=== PATIENT | male | born 1940 | race Caucasian/White ===

== ENCOUNTER 2017-05-16 11:01 | Emergency (ER) | payer MEDICARE ==
[~2017-05-16] VITALS: Ht 177.8 cm; Wt 86.2 kg
[~2017-05-16 11:01] MED LIST: ASPIRIN 81MG TA81 MG PO; COMBIVENT1 ARO IH; GABAPENTIN300 M1 PO; HYDROCHLOROTHIA25 M1 PO; LIPITOR20 MG PO; LISINOPRIL 20MG20 MG PO; METOPROLOL25 MG PO; NAPROSYN500 M1 PO; TAMIFLU 75MG CA75 MG PO; XARELTO20 MG PO; ZOLPIDEM 10MG T10 MG PO
--- NOTE | 2017-05-16 11:18 | Emergency Room Report ---
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 N Clinical Suspician of Infection? N Mental Status: 1 - Regular (Normal Baseline) Sepsis Risk:Low Sepsis Risk Have you (or family members/close friends) recently traveled outside the [place]? N If Yes, where/when: Have you had exposure to infectious disease within the past month? TB? Other? Specify: Source patient, RN notes reviewed, family, RN/MD Exam Limitations no limitations Comment This is a 76-year-old male patient presenting to the emergency room with dizziness since yesterday, after accidentally taking an additional/extra dose of Delsym. She has been congested and coughing for 3-4 days, not seen his physician yet, gradually getting worse. Orthostatic blood pressure checked in the emergency room upon arrival are nondiagnostic. Denies any chest pain or exertional symptoms. ALLERGIES Coded Allergies: No Known Allergies (05/16/17) Home Medications Reported Medications Gabapentin 300 MG PO TID Zolpidem Tartrate (Zolpidem 10MG) 10 MG PO QHS #30 TAB Metoprolol Tartrate (Metoprolol) 50 MG PO BID LISINOPRIL (Lisinopril) 20 MG PO DAILY Atorvastatin Calcium (Lipitor 20MG) 20 MG PO QHS Rivaroxaban (Xarelto) 20 MG PO DAILY #30 HYDROCHLOROTHIAZIDE (Hydrochlorothiazide) 25 MG PO DAILY #30 History Medical History General CAD? Yes Angina: No MA: No Hypertension? Yes Hyperlipidemia? Yes CHF? No DVT? No PE? No COPD? No Asthma? No Anemia? No GERD? No Gastric ulcers? No GI Bleed? No Hernia? No Thyroid Problems? No Hypothyroidism? No CVA? No Seizures? No Diabetes? No Renal Insuffiency? No End Stage Renal Disease? No UTI? No Stones? No BPH? No GB Disease: No Nephritic Syndrome? No Asplenia? No Hepatitis? No Sickle Cell Disease? No Arthritis? No Migraines? No Cataracts? No Glaucoma? No MRSA? No HIV? No TB? No Anxiety? No Depression? No Cancer? No More? Yes Additional hx: A FIB Immunization Hx Ped.Immunizations UTD Yes DT/Tetanus 1-4 Years Ago Pneumonia Refuses Surgical Hx Previous Surgery?Y Coronary Artery Bypass Family History Family Hx Diabetes No CAD No Hypertension Yes Hyperlipidemia Yes Cancer Yes TB No Social History Smoking Hx Smoker: Never Smoker Tobacco: No Type N/A Packs/day N/A Are you/the child exposed to second-hand smoke: No Alcohol Alcohol: No Review of Systems All Other Systems Reviewed and Negative Psychiatric/Neurological other (dizziness) Physical Exam Vital Signs Vital Signs Date Time Temp Pulse Resp B/P Pulse O2 O2 Flow FiO2 Ox Delivery Rate 05/16 1335 97.8 72 20 108/72 94 05/16 1224 76 20 110/78 94 05/16 1142 87 118/72 05/16 1142 83 119/80 05/16 1142 81 112/83 05/16 1103 97.8 89 16 125/81 94 General Appearance normal appearance, WD/WN, no apparent distress Respiratory Status Yes: trachea midline, chest symmetrical, non tender chest. No: respiratory distress. Lung Sounds bilateral: wheezing. left: wheezing. right: wheezing. Cardiovascular no peripheral edema, irregularly irregular Peripheral Pulses Pulses normal Yes Gastrointestinal normal bowel sounds, normal exam, non tender, soft, no organomegaly Extremities non-tender, normal range of motion, normal inspection Neurologic alert, managed care nurse II-XII nml as tested, normal exam, oriented x 3 Mental status normal mood/affect Skin intact, normal color, warm/dry Medical Decision Making LABS/Meds/Orders Pt receiving controlled substance in ED? No Comment 1245-upon reevaluation the patient appears medically stable, clinically improving. Advised patient to avoid Delsym, and switch to Coricidin. Also start him on oral antibiotics today. If no better to follow-up with PCP per discharge instructions. Results/Orders Laboratory Tests 05/16/17 1120: Sodium 143, Potassium 4.3, Chloride 105, Carbon Dioxide 28, BUN 24 H, Creatinine 1.1, Estimated Creat Clear 67, Estimated GFR (MDRD) 65, Glucose 140 H, Calcium 8.8, Total Bilirubin 0.9, AST 21, ALT 30, Alkaline Phosphatase 82, Creatine Kinase 186, CK-MB (CK-2) Rel Index 0.3, CK and CKMB Interp 0.6, Troponin I < 0.02, Total Protein 7.3, Albumin 3.8, Globulin 3.5 H, Albumin/ Globulin Ratio 1.1, WBC 8.2, RBC 4.23 L, Hgb 12.9 L, Hct 39.4 L, MCV 93.1, RDW 13.1, Plt Count 227, MPV 7.8, Gran % 83.2 H, Gran # 6.9, Lymphocytes % 11.5 , Monocytes % 3.8, Eosinophils % 1.1, Basophils % 0.4, Lymphocytes # 1.0, Monocytes # 0.3, Eosinophils # 0.1, Basophils # 0.0, PUBS MCHC 32.8, MCH 30.6 Current Medication Orders Sig/Evaristo Start time Last Medication Dose Route Stop Time Status Admin Aspirin 325 MG ONCE ONE 05/16 1115 CAN PO 05/16 1116 Sodium Chloride 10 ML PRN PRN 05/16 1115 DCD IV 05/17 1104 Orders Procedure Date/time Status ELECTROCARDIOGRAM REQUEST 05/16 1114 Active ORTHOSTATIC B/P 05/16 1113 Active ELECTROCARDIOGRAM REQUEST 05/16 1104 Active IV SALINE LOCK 05/16 1104 Active X 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 of ischemic chgs, no ectopy XRAY/CT/US XRAY/CT/US XRAY chest XR interpretation by reviewed by me, discussed w/radiologist Xray Results no infiltrates, normal heart size, normal lung inflation nicola Departure Departure Time of Disposition 1308 Disposition DC Home or Self Care(routine) Clinical Impression Primary Impression: Adverse effects of medication Qualifiers: Encounter type: initial encounter Qualified Code: T88.7XXA - Unspecified adverse effect of drug or medicament, initial encounter Condition STABLE Patient Instructions DI for Adverse Drug Reaction -- Other Additional Instructions Please take Coricidin OTC for your cough, as needed. Discharge Counseling Counseled pt/family regarding diagnosis, test results, medications/RX, home care, follow up needs Comment Please take Coricidin OTC for your cough, as needed. Prescriptions Current Visit Scripts Amoxicillin/Potassium Clav (Augmentin 875-125 Tablet) 1 EACH PO BID #20 TAB ED Critical Care Critical Care No at 1707
--- NOTE | 2017-05-16 11:18 | Emergency Room Report ---
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 N Clinical Suspician of Infection? N Mental Status: 1 - Regular (Normal Baseline) Sepsis Risk:Low Sepsis Risk Have you (or family members/close friends) recently traveled outside the [place]? N If Yes, where/when: Have you had exposure to infectious disease within the past month? TB? Other? Specify: Source patient, RN notes reviewed, family, RN/MD Exam Limitations no limitations Comment This is a 76-year-old male patient presenting to the emergency room with dizziness since yesterday, after accidentally taking an additional/extra dose of Delsym. She has been congested and coughing for 3-4 days, not seen his physician yet, gradually getting worse. Orthostatic blood pressure checked in the emergency room upon arrival are nondiagnostic. Denies any chest pain or exertional symptoms. ALLERGIES Coded Allergies: No Known Allergies (05/16/17) Home Medications Reported Medications Gabapentin 300 MG PO TID Zolpidem Tartrate (Zolpidem 10MG) 10 MG PO QHS #30 TAB Metoprolol Tartrate (Metoprolol) 50 MG PO BID LISINOPRIL (Lisinopril) 20 MG PO DAILY Atorvastatin Calcium (Lipitor 20MG) 20 MG PO QHS Rivaroxaban (Xarelto) 20 MG PO DAILY #30 HYDROCHLOROTHIAZIDE (Hydrochlorothiazide) 25 MG PO DAILY #30 History Medical History General CAD? Yes Angina: No PA: No Hypertension? Yes Hyperlipidemia? Yes CHF? No DVT? No PE? No COPD? No Asthma? No Anemia? No GERD? No Gastric ulcers? No GI Bleed? No Hernia? No Thyroid Problems? No Hypothyroidism? No CVA? No Seizures? No Diabetes? No Renal Insuffiency? No End Stage Renal Disease? No UTI? No Stones? No BPH? No GB Disease: No Nephritic Syndrome? No Asplenia? No Hepatitis? No Sickle Cell Disease? No Arthritis? No Migraines? No Cataracts? No Glaucoma? No MRSA? No HIV? No TB? No Anxiety? No Depression? No Cancer? No More? Yes Additional hx: A FIB Immunization Hx Ped.Immunizations UTD Yes DT/Tetanus 1-4 Years Ago Pneumonia Refuses Surgical Hx Previous Surgery?Y Coronary Artery Bypass Family History Family Hx Diabetes No CAD No Hypertension Yes Hyperlipidemia Yes Cancer Yes TB No Social History Smoking Hx Smoker: Never Smoker Tobacco: No Type N/A Packs/day N/A Are you/the child exposed to second-hand smoke: No Alcohol Alcohol: No Review of Systems All Other Systems Reviewed and Negative Psychiatric/Neurological other (dizziness) Physical Exam Vital Signs Vital Signs Date Time Temp Pulse Resp B/P Pulse O2 O2 Flow FiO2 Ox Delivery Rate 05/16 1335 97.8 72 20 108/72 94 05/16 1224 76 20 110/78 94 05/16 1142 87 118/72 05/16 1142 83 119/80 05/16 1142 81 112/83 05/16 1103 97.8 89 16 125/81 94 General Appearance normal appearance, WD/WN, no apparent distress Respiratory Status Yes: trachea midline, chest symmetrical, non tender chest. No: respiratory distress. Lung Sounds bilateral: wheezing. left: wheezing. right: wheezing. 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 No Comment 1245-upon reevaluation the patient appears medically stable, clinically improving. Advised patient to avoid Delsym, and switch to Coricidin. Also start him on oral antibiotics today. If no better to follow-up with PCP per discharge instructions. Results/Orders Laboratory Tests 05/16/17 1120: Sodium 143, Potassium 4.3, Chloride 105, Carbon Dioxide 28, BUN 24 H, Creatinine 1.1, Estimated Creat Clear 67, Estimated GFR (MDRD) 65, Glucose 140 H, Calcium 8.8, Total Bilirubin 0.9, AST 21, ALT 30, Alkaline Phosphatase 82, Creatine Kinase 186, CK-MB (CK-2) Rel Index 0.3, CK and CKMB Interp 0.6, Troponin I < 0.02, Total Protein 7.3, Albumin 3.8, Globulin 3.5 H, Albumin/ Globulin Ratio 1.1, WBC 8.2, RBC 4.23 L, Hgb 12.9 L, Hct 39.4 L, MCV 93.1, RDW 13.1, Plt Count 227, MPV 7.8, Gran % 83.2 H, Gran # 6.9, Lymphocytes % 11.5 , Monocytes % 3.8, Eosinophils % 1.1, Basophils % 0.4, Lymphocytes # 1.0, Monocytes # 0.3, Eosinophils # 0.1, Basophils # 0.0, PUBS MCHC 32.8, MCH 30.6 Current Medication Orders Sig/Evaristo Start time Last Medication Dose Route Stop Time Status Admin Aspirin 325 MG ONCE ONE 05/16 1115 CAN PO 05/16 1116 Sodium Chloride 10 ML PRN PRN 05/16 1115 DCD IV 05/17 1104 Orders Procedure Date/time Status ELECTROCARDIOGRAM REQUEST 05/16 1114 Active ORTHOSTATIC B/P 05/16 1113 Active ELECTROCARDIOGRAM REQUEST 05/16 1104 Active IV SALINE LOCK 05/16 1104 Active SENIOR PROJECT ARCHITECT 05/16 1104 Active COMPLETE METABOLIC PANEL 05/16 1104 Complete CBC WITH AUTO DIFF 05/16 1104 Complete CARDIAC ENZYMES 05/16 1104 Complete 12 LEAD EKG-RICARDO (INITIAL) 05/16 UNK Active 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 of ischemic chgs, no ectopy XRAY/CT/US XRAY/CT/US XRAY chest XR interpretation by reviewed by me, discussed w/radiologist Xray Results no infiltrates, normal heart size, normal lung inflation nicola Departure Departure Time of Disposition 1308 Disposition DC Home or Self Care(routine) Clinical Impression Primary Impression: Adverse effects of medication Qualifiers: Encounter type: initial encounter Qualified Code: T88.7XXA - Unspecified adverse effect of drug or medicament, initial encounter Condition STABLE Patient Instructions DI for Adverse Drug Reaction -- Other Additional Instructions Please take Coricidin OTC for your cough, as needed. Discharge Counseling Counseled pt/family regarding diagnosis, test results, medications/RX, home care, follow up needs Comment Please take Coricidin OTC for your cough, as needed. Prescriptions Current Visit Scripts Amoxicillin/Potassium Clav (Augmentin 875-125 Tablet) 1 EACH PO BID #20 TAB ED Critical Care Critical Care No at 1703
[2017-05-16 11:31] LABS: HEMOGLOBIN 12.9 g/dL (14.1-18.0); LYMPH % 11.5 % (10-50)
--- OUTSIDE RECORDS SUMMARY | 2017-05-16 11:33 | External Medical Summary Rpt | CCD ---
Author Author , DESTINY Organization DESTINY Address Unknown Phone [email or web address] Immunization Name Date Rout CVX Reac Dose Comm Prov Is Faci e tion ent ider Refu lity Give sed n Infl 09-2 Intr 135 0.5 Hist [facility] No [facility]M uenz 8-20 amus mL oric ART4 ART4 a, 17 cula al 93 93 High r Info rmat Dose ion - Sour ce Unsp ecif ied Infl 11-2 Intr 140 0.5 Hist [facility] No [facility] uenz 9-20 amus mL oric ROBBIE AID0 a, 16 cula al AYMA 3938 P-Fr r Info N ee rmat ion - Sour ce Unsp ecif ied Zost 07-0 Subc 121 1 mL Hist [facility] No RITE er 2-20 utan oric ROBBIE AID0 16 eous al AYMA 3938 Info N rmat ion - Sour ce Unsp ecif ied
--- OUTSIDE RECORDS SUMMARY | 2017-05-16 11:33 | External Medical Summary Rpt | CCD ---
Author Author , EDSTINY DIXON Address Unknown Phone [email or web address] Care Team Providers Care Material Manager Name Role Phone WESTON WARREN DO, Unavailable Unavailable WESTON WARREN DO Purpose Continuity of Care Document - 07-29-2013 through 2016 Problems Code Diagnosis DOS Provider Status 487.1 487.1 FLU W 07-29-2013 [facility] NEC Allergies, Adverse Reactions, Alerts Type Allergy to substance Adverse Reaction to Substance Substance Reaction Severity NO KNOWN ALLERGIES Unknown Unknown Medications Na ND Rx Da Fi Fi Am Da Di Ph RX Ph St me C No te ll ll ou ys ag ar # ys at rm s nt no ma ic us Or Da si cy ia de te s n re d SO 00 02 0 No DI 40 -0 UM 97 2- Lo 98 20 ng CH 30 14 er LO 3 RI Ac DE ti ve 0. 9% SO CHUCKIE TI ON AL 00 02 0 No BU 48 -0 TE 79 2- Lo RO 50 20 ng L 10 14 er [place] 1 L Ac 2. ti 5 ve MG /[address] IP 00 02 0 No RA 48 -0 TR 79 2- Lo OP 80 20 ng IU 10 14 er M 1 BR Ac ti 0. ve 02 % SO LN SO 00 02 0 No CHUCKIE 00 -0 -M 90 2- Lo ED 04 20 ng RO 72 14 er L 2 12 Ac 5 ti MG ve AL TA 00 02 0 No OR 00 -0 FL 40 2- Lo U 80 20 ng 75 08 14 er 5 MG Ac ti CA ve PS UL E Sa 63 02 0 No li 80 -0 ne 70 2- Lo 10 20 ng Fl 07 14 er us 5 h Ac 10 ti ML ve Sy ri ng e Vital Signs 07-29-2013 17:19 Name Value Interpretat Reference Comment ion Range Body 98.6 [degF] Temperature BP 65 mm[Hg] Diastolic BP Systolic 122 mm[Hg] Heart 71 /min Rate/Pulse O2% 94 % Respiratory 20 /min Rate 07-29-2013 16:01 Name Value Interpretat Reference Comment ion Range BP 70 mm[Hg] Diastolic BP Systolic 121 mm[Hg] Heart 67 /min Rate/Pulse Respiratory 20 /min Rate 07-29-2013 15:33 Name Value Interpretat Reference Comment ion Range O2% 92 % Results Labs Lab Lab Date Result Refere Interp Status Commen Order Detail nces retati t Range on ARTERIAL BLOOD GAS (07-29-2013 16:05) ARTERIA 7.44 7.35-7. complet L PH 014 MMOL/L 45 ed 16:05 ARTERIA 41.4 35.0-45 complet L PCO2 014 MMHG .0 ed 16:05 ARTERIA 76.3 80-100 complet L PO2 014 MMHG ed 16:05 ARTERIA 27.6 22.0-26 complet L HCO3 014 MMOL/L .0 ed 16:05 ARTERIA 28.8 23-27 complet L TCO2 014 MMOL/L ed 16:05 Base 3.4 -2.4-+2 complet excess 014 MMOL/L .3 ed BldA-sC 16:05 nc ARTERIA 95.5 % 90-100 complet L O2 014 ed SAT 16:05 OXYGEN 21% complet 014 ed 16:05 Arteria ACCEPTA complet l 014 BLE ed patency 16:05 Wrist a SOURCE LEFT complet 014 RADIAL ed 16:05 COMPREHENSIVE METABOLIC PANEL (07-29-2013 16:00) Glucose 145 74-106 complet 014 mg/dL ed Bld-mCn 16:00 c BUN 18 7-18 complet Bld-mCn 014 mg/dL ed c 16:00 Creat 1.3 0.8-1.3 complet SerPl-m 014 mg/dL ed Cnc 16:00 Creat 63 50-200 complet Cl 014 ML/MIN ed predict 16:00 ed SerPl C-G-vRa te GFR/BSA 54 Greater complet .pred 014 ML/MIN than ed SerPl 16:00 60 Schwart z-vRate Sodium 140 136-145 complet SerPl-s 014 mmoL/L ed Cnc 16:00 Potassi 07-29-2 3.8 3.5-5.1 complet um 014 mmoL/L ed SerPl-s 16:00 Cnc Chlorid 2 102 98-107 complet e 014 mmoL/L ed SerPl-s 16:00 Cnc CO2 2 30 21.0-32 complet SerPl-s 014 mmoL/L .0 ed Cnc 16:00 Calcium 07-29-2 8.5 8.5-10. complet 014 mg/dL 1 ed SerPl-m 16:00 Cnc Prot 07-29-2 7.5 6.4-8.2 complet SerPl-m 014 gm/dL ed Cnc 16:00 Albumin 2 3.6 3.4-5.0 complet 014 gm/dL ed SerPl-m 16:00 Cnc Globuli 2 3.9 1.3-3.2 complet n 014 gm/dL ed Ser-mCn 16:00 c Albumin 07-29-2 0.9 UNK 1.1-1.8 complet /Glob 014 ed SerPl-m 16:00 Rto Bilirub 07-29-2 0.4 0.2-1.0 complet 014 mg/dL ed SerPl-m 16:00 Cnc AST 07-29-2 22 U/L 15-37 complet SerPl-c 014 ed Cnc 16:00 ALT 07-29-2 34 U/L 12-78 complet SerPl-c 014 ed Cnc 16:00 ALP 02-2 98 U/L 50-136 complet SerPl-c 014 ed Cnc 16:00 CBC with AUTO DIFF (07-29-2013 16:00) WBC # 02-02-2 4.5 4.8-10. complet Bld 014 K/MM3 8 ed Auto 16:00 RBC # 02-02-2 4.37 4.6-6.2 complet Bld 014 M/mm3 ed Auto 16:00 Hgb 07-29-2 13.0 14.1-18 complet Bld-mCn 014 g/dL .0 ed c 16:00 Hct Fr 07-29-2 39.0 % 42.0-52 complet Bld 014 .0 ed 16:00 MCV RBC 07-29-2 89.4 fl 82.2-97 complet 014 .8 ed 16:00 MCH RBC 07-29-2 29.7 pg 27-31.2 complet Qn 014 ed Auto 16:00 MEAN 2 33.2 31.8-35 complet CORPUSC 014 g/dl .4 ed ULAR 16:00 HGB CONC RDW RBC 07-29-2 14.9 % 11.5-17 complet Auto 014 .5 ed 16:00 Platele 07-29-2 160 142-424 complet t Bld 014 K/mm3 ed Ql 16:00 Manual MEAN 9.0 fl 7.4-10. complet PLATELE 014 4 ed T 16:00 VOLUME Granulo 07-29-2 80.4 % 37.0-80 complet cytes 014 .0 ed Fr Bld 16:00 Auto LYMPH % 07-29-2 11.2 % 10-50 complet 014 ed 16:00 Monocyt 07-29-2 7.2 % 1.7-9.3 complet es Fr 014 ed Bld 16:00 Auto Eosinop -02-2 0.8 % 0.1-12. complet hil Fr 014 0 ed Bld 16:00 Auto Basophi -02-2 0.3 % 0.1-2.0 complet ls Fr 014 ed Bld 16:00 Auto Granulo -02-2 3.6 1.3-8.0 complet cytes # 014 K/mm3 ed Bld 16:00 Auto Lymphoc --2 0.5 0.7-4.5 complet ytes Fr 014 K/mm3 ed Bld 16:00 Auto Monocyt -02-2 0.3 0.1-1.0 complet es # 014 K/mm3 ed Bld 16:00 Auto Eosinop -02-2 0.0 0.0-0.4 complet hil # 014 K/mm3 ed Bld 16:00 Auto Basophi -02-2 0.0 0-0.2 complet ls # 014 K/MM3 ed Bld 16:00 Auto Encounters Encounter Start End Date Code Location Performer Type Date Emergency FRANCK Vamsi WARREN DO (ER) 4 15:55 4 17:26 [facility]
--- OUTSIDE RECORDS SUMMARY | 2017-05-16 11:33 | External Medical Summary Rpt | CCD ---
Author Author , DESTINY Organization DESTINY Address Unknown Phone [email or web address] Immunization Name Date Rout CVX Reac Dose [...]
--- OUTSIDE RECORDS SUMMARY | 2017-05-16 11:33 | External Medical Summary Rpt ---
Author Author DESTINY Urbina, [employer] Organization [employer] Address Unknown Phone Unavailable
--- OUTSIDE RECORDS SUMMARY | 2017-05-16 11:33 | External Medical Summary Rpt | CCD ---
Author Author , DESTINY DIXON Address Unknown Phone [email or web address] Team Providers Care Exhibits Manager Name Role Phone WESTON WARREN DO, Unavailable Unavailable WESTON WARREN DO Purpose Continuity of Care Document - 07-29-2013 through 2016 Problems Code Diagnosis DOS Provider Status 487.1 487.1 FLU W 07-29-2013 [facility] NEC Allergies, Adverse Reactions, Alerts Type Allergy [...] ve AL TA 00 02 0 No NV 00 -0 FL 40 2- Lo U [...] WARREN DO (ER) 4 15:55 4 17:26 [facility]
--- OUTSIDE RECORDS SUMMARY | 2017-05-16 11:33 | External Medical Summary Rpt | CCD ---
Author Author [employer] Organization [employer] Address Unknown Phone Unavailable Purpose Continuity of Care Document - through 2016
[2017-05-16 12:38] LABS: BUN 24 mg/dL (7-18); GFR (ESTIMATED) 65 ML/MIN (>60)
[2017-05-16] MEDS ORDERED: AUGMENTIN 875-1 EACH PO (13:24)
[2017-05-16 13:35] VITALS: BP 108/72
--- NOTE | 2017-05-16 16:58 | RADIOLOGY REPORT PS360 ---
CHEST-PORTABLE HISTORY: dizziness ORDERING PHYSICIAN: Yoandy Champagne MD PATIENT AGE: 76 years COMPARISON: 03/11/2016 FINDINGS: There has been a prior median sternotomy. There is borderline cardiomegaly without failure. There are low lung volumes with elevated right hemidiaphragm. A 12 mm nodular opacity overlies the right mid lung and could even be due to summation artifact. Upright PA and lateral chest may be of further value. The remaining lungs are clear. No acute bony anomalies. IMPRESSION: 1. Prior median sternotomy with mild cardiomegaly. 2. Possible right midlung nodule versus summation artifact. Consider follow-up PA and lateral chest for further evaluation
== END 2017-05-16 13:38 | disposition home or self-care (01) ==
LOC: ER 11:01
PROVIDERS: Emergency Medicine
DX: T48.3X1A Poisoning by antitussives, accidental (unintentional), initial encounter (principal); I25.10 Atherosclerotic heart disease of native coronary artery without angina pectoris; I10 Essential (primary) hypertension; E78.5 Hyperlipidemia, unspecified; I48.0 Paroxysmal atrial fibrillation